=== PATIENT | male | born 1975 | race Caucasian/White ===

== ENCOUNTER 2019-02-10 02:05 | Emergency (ER) | payer OTHER ==
[~2019-02-10 02:05] MED LIST: NOHOMEMEDICATIONS; NORCO 5-325 TA1 EACH PO; PREDNISONE 20 M20 MG PO; PROAIR HFA8.5 GM IH; SILVADENE20 GM TP; VICODIN 5-5001 EACH PO
[2019-02-10 03:15] VITALS: BP 000/00
== END 2019-02-10 03:15 ==
LOC: M.ERS 02:05
DX: Z53.21 Procedure and treatment not carried out due to patient leaving prior to being seen by health care provider (principal)

== ENCOUNTER 2021-01-03 22:17 | Emergency (ER) | payer OTHER ==
[~2021-01-03] VITALS: Ht 172.7 cm; Wt 88.5 kg
[2021-01-03 22:59] LABS: URINE BILIRUBIN NEGATIVE (Negative); URINE BLOOD NEGATIVE (Negative); URINE CLARITY CLEAR; URINE COLOR YELLOW; URINE GLUCOSE-RANDOM NEGATIVE (Negative); URINE KETONES TRACE (Negative); URINE LEUKOCYTES NEGATIVE (Negative); URINE NITRITE NEGATIVE (Negative); URINE PROTEIN 1+ (Negative); URINE SPECIFIC GRAVITY >= 1.030 (1.005-1.030); URINE UROBILINOGEN 0.2 E.U./dl (0.2-1.0)
[2021-01-03 23:01] LABS: HEMATOCRIT 46.4 % (42.0-52.0); HEMOGLOBIN 15.7 gm/dL (14.0-18.0); MCH 29.1 pg (26.0-34.0); MCHC 33.9 g/dL (28.0-37.0); MCV 85.9 fL (80.0-100.0); MPV 8.3 fl. (7.2-11.1); RBC 5.4 mil/uL (4.50-6.00); RDW-CV 13.7 % (10.5-14.5); WBC 10.1 thou/uL (4.0-11.0)
[2021-01-03 23:06] LABS: CALCIUM 8.7 mg/dL (8.5-10.1); CREATININE 1.1 mg/dL (0.6-1.3); POTASSIUM 3.9 mmol/L (3.5-5.1)
[2021-01-03 23:07] LABS: AMP/METHAMP Negative (Negative); BARBITURATES Negative (Negative); BENZODIAZEPINES Negative (Negative); COCAINE Negative (Negative); METHADONE Negative (Negative); OPIATES Negative (Negative); PCP Negative (Negative); THC Negative (Negative)
[2021-01-03 23:11] LABS: ALBUMIN 4.3 g/dL (3.4-5.0); TOTAL BILIRUBIN 0.5 mg/dL (<0.1-1.0); TOTAL PROTEIN 8.4 g/dL (6.4-8.2)
[2021-01-03 23:13] LABS: ALCOHOL 118 mg/dL (<10); SALICYLATE < 2.8 mg/dL (2.8-20.0)
[2021-01-03 23:14] LABS: ACETAMINOPHEN < 2 ug/mL (10-30)
[2021-01-04 01:39] VITALS: BP 137/87
== END 2021-01-04 01:39 | disposition home or self-care (01) ==
LOC: M.ERS 22:17
PROVIDERS: Personal Emergency Response Attendant
DX: F10.920 Alcohol use, unspecified with intoxication, uncomplicated (principal); R45.851 Suicidal ideations; I48.91 Unspecified atrial fibrillation

== ENCOUNTER 2021-10-23 03:36 | Inpatient (IN) | payer OTHER ==
[~2021-10-23] VITALS: Ht 175.3 cm; Wt 90.7 kg
[2021-10-23 03:46] VITALS: BP 114/69
[2021-10-23] MEDS ORDERED: INHALER (03:53)
[2021-10-23] MEDS ORDERED: STEROID (03:53)
[2021-10-23] MEDS ORDERED: COUGH MEDICATION (03:54)
[2021-10-23 04:46] LABS: CALCIUM 8.3 mg/dL (8.5-10.1); CREATININE 1.1 mg/dL (0.6-1.3); POTASSIUM 3.9 mmol/L (3.5-5.1)
[2021-10-23 04:51] LABS: ABSOLUTE LYMPHOCYTES 1.3 thou/uL (0.8-5.3); ABSOLUTE MONOCYTES 0.4 thou/uL (0.0-1.2); ABSOLUTE NEUTROPHILS 6.7 thou/uL (1.6-8.1); BASOPHILS 0.1 %; HEMATOCRIT 40.4 % (42.0-52.0); HEMOGLOBIN 13.7 gm/dL (14.0-18.0); MCH 28.8 pg (26.0-34.0); MCHC 33.8 g/dL (28.0-37.0); MCV 85.3 fL (80.0-100.0); MONOCYTES 4.8 %; MPV 8.3 fl. (7.2-11.1); NUCLEATED RBCS 0 /100WBC; PLATELET COUNT* 140 thou/uL (150-400); POLYS 80.1 %; RBC 4.74 mil/uL (4.50-6.00); WBC 8.4 thou/uL (4.0-11.0)
[2021-10-23 04:57] LABS: ALBUMIN 3.1 g/dL (3.4-5.0); TOTAL BILIRUBIN 0.6 mg/dL (<0.1-1.0); TOTAL PROTEIN 7.1 g/dL (6.4-8.2)
[2021-10-23 05:21] LABS: INFLUENZA A ANTIGEN Negative (Negative); INFLUENZA B ANTIGEN Negative (Negative)
[2021-10-23 07:52] VITALS: BP 115/60
--- NOTE | 2021-10-23 11:19 | EKG ---
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
[2021-10-23 13:00] VITALS: BP 124/72
[2021-10-23] MEDS ORDERED: XANAX 0.5 MG0.5 M1 PO (15:00)
[2021-10-23] MEDS ORDERED: DEXAMETHASONE 44 M1 PO (15:00)
[2021-10-23] MEDS ORDERED: GUAIFENESIN-CODE5 ML PO (15:00)
--- NOTE | 2021-10-23 15:55 | NUR ---
Received orders for discharge and pt needs 2 liters of 02. Faxed referral to [facility] and he was approved. Delivered 02 tank to nurses station. All clinicals including script have been faxed.
[2021-10-23 16:41] VITALS: BP 124/72
[2021-10-23 17:14] VITALS: BP 124/70
== END 2021-10-23 17:10 | disposition home or self-care (01) | DRG 177 ==
LOC: M.ERS 03:36 → M.TBA-ER 05:57
PROVIDERS: Emergency Medicine; ADMIT Internal Medicine; ATTEND Internal Medicine
DX: U07.1 COVID-19 (principal); J96.01 Acute respiratory failure with hypoxia; J12.82 Pneumonia due to coronavirus disease 2019; I48.91 Unspecified atrial fibrillation; R73.9 Hyperglycemia, unspecified; T38.0X5A Adverse effect of glucocorticoids and synthetic analogues, initial encounter; F41.9 Anxiety disorder, unspecified; Z79.899 Other long term (current) drug therapy; Y92.89 Other specified places as the place of occurrence of the external cause